=== PATIENT | male | born 2000 | race Two or more races ===

== ENCOUNTER 2022-08-11 20:08 | Emergency (ER) | payer SELFPAY ==
[~2022-08-11] VITALS: Ht 177.8 cm; Wt 111.5 kg
[2022-08-11 20:44] VITALS: BP 144/92
== END 2022-08-11 23:32 | disposition left against medical advice (07) ==
LOC: ER 20:08
DX: M79.644 Pain in right finger(s) (principal); Z53.21 Procedure and treatment not carried out due to patient leaving prior to being seen by health care provider
CPT/HCPCS: 99281